=== PATIENT | male | born 1995 | race Caucasian/White ===

== ENCOUNTER → 2016-10-27 | Outpatient (REF) ==
[~2016-10-27] MED LIST: ANTIVERT 12.512.5 MG PO; NORCO 325 MG-51 TAB PO; ZOFRAN 4MG T4 MG/TAB PO
== END ==
LOC: WSOH 09:04
DX: Z02.89 Encounter for other administrative examinations (principal)

== ENCOUNTER 2017-02-24 12:15 | Outpatient (RCR) | payer OTHER | END 2017-03-01 08:47 | disposition home or self-care (01) | LOC: WSPT 12:15 | DX: S39.012D Strain of muscle, fascia and tendon of lower back, subsequent encounter (principal); M54.16 Radiculopathy, lumbar region; X50.0XXD Overexertion from strenuous movement or load, subsequent encounter; Y99.0 Civilian activity done for income or pay | CPT/HCPCS: G0283-GP ==